=== PATIENT | male | born 1945 | race Caucasian/White ===

== ENCOUNTER 2016-07-17 13:24 | Emergency (ER) | payer MEDICARE ==
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
[2016-07-17] MEDS ORDERED: Norco 10/325 MG Tablet PO ONE (15:20)
[2016-07-17] MEDS ORDERED: Norco 10/325 MG Tablet ONE (15:44)
[2016-07-17] MEDS ORDERED: XYLOCAINE 2% HCL 20 ML MDV ONE (16:11)
[2016-07-17] MEDS ORDERED: Adacel Vial IM ONE ×2 (16:33→16:35)
[2016-07-17] MEDS ORDERED: Augmentin 875-125 Tablet PO ONE (16:35)
[2016-07-17] MEDS ORDERED: Augmentin 875-125 Tablet ONE (16:41)
[2016-07-17 17:51] VITALS: BP 160/68; PULSE 81; O2SAT 97
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
--- NOTE | 2016-07-17 20:08 | XRAY ---
Indication: Status post fall. Comparison: June 18, 2015. Portable chest unchanged again hyperinflated with a few calcified granulomas, left costophrenic angle blunting, and left-sided single lead pacemaker. Remaining lungs clear. Heart is not enlarged. Bony thorax intact again with osteopenia, degenerative changes, and previous C6-C7 fusion surgery. Impression: Stable nonacute chest with chronic features.
--- NOTE | 2016-07-17 20:10 | XRAY ---
Indication: Status post fall. Comparison: December 19, 2011. AP pelvis again demonstrates osteopenia, faint vascular calcifications, and mild/moderate degenerative changes of both hips and lower lumbar spine. No new/acute findings.
--- NOTE | 2016-07-17 20:12 | XRAY ---
Indication: Status post fall. Comparison: None 2 views of the right ribs demonstrates osteopenia, mild AC degenerative arthropathy, C6-C7 fusion surgery, partially visualized cardiac pacer lead, and deformed proximal upper arm stent graft. No other bone, articular, or soft tissue abnormalities.
--- NOTE | 2016-07-17 20:14 | XRAY ---
Indication: Status post fall. Comparison: None 2 views of the right femur demonstrates mild osteopenia, mild/moderate right hip degenerative changes, patellar spurring, and scattered vascular calcifications. No other bony, articular, or soft tissue abnormalities.
== END 2016-07-17 17:51 | disposition home or self-care (01) ==
LOC: ED 13:24
PROC: 0HQ2XZZ Repair Right Ear Skin, External Approach (ICD-10-PCS; principal; 2016-07-17)
DX: S01.311A Laceration without foreign body of right ear, initial encounter (principal); S16.1XXA Strain of muscle, fascia and tendon at neck level, initial encounter; S00.03XA Contusion of scalp, initial encounter; S70.01XA Contusion of right hip, initial encounter; J32.0 Chronic maxillary sinusitis; J32.2 Chronic ethmoidal sinusitis; W17.89XA Other fall from one level to another, initial encounter; R51 Headache; Z79.4 Long term (current) use of insulin; Z79.899 Other long term (current) drug therapy; Z86.73 Personal history of transient ischemic attack (TIA), and cerebral infarction without residual deficits; I50.9 Heart failure, unspecified; E78.00 Pure hypercholesterolemia, unspecified; I10 Essential (primary) hypertension; E11.9 Type 2 diabetes mellitus without complications
CPT/HCPCS: 12013; 99284; 71010; 73552; 72170; 71100; 70450; 72125; A9270 ×2; 90471; 90715; 99283

== ENCOUNTER 2017-01-13 21:20 | Emergency (ER) | payer MEDICARE ==
[2017-01-13] MEDS ORDERED: Sodium Chloride 0.9% 1000 ML 1,000 ML ONE (21:59)
--- NOTE | 2017-01-13 21:59 | ERPHSYRPT ---
- History of Present Illness Time Seen by Provider: 01/13/17 21:54 Source: patient Exam Limitations: clinical condition (Patient extremely somnolant) Physician History: 71-year-old white male with history of TIA, cataracts, congestive heart failure , hyperlipidemia, high blood pressure, [place], COPD, diabetes, chronic renal failure on dialysis, arthritis, depression Brought from a custodial patient apparently decreased level of consciousness since noon today patient apparently had a recent fistula placement at [facility] [place]. Apparently a had dialysis today Patient noted to be decreased level of consciousness she arrives. Patient currently moans when I talk to him. Will squeeze hands bilaterally weakly but really will not obey commands and actually resists opening of eyes. Past medical history includes TIA, cataracts, congestive heart failure, hyperlipidemia, high blood pressure, [place], COPD, diabetes, arthritis, GERD, renal failure on dialysis, depression, prostate problems and bladder problems Past surgical history includes angioplasty, cardiac catheter, cardiac stents, defibrillator, pacer, cholecystectomy, testicular surgery, cardiac stent 6, him suprapubic catheter waking him. Timing/Duration: today Severity: moderate Modifying Factors: Improves With: nothing Associated Symptoms: other (patient noted to be decreased loc at custodial since noon) Allergies/Adverse Reactions: pregabalin [From Lyrica] Allergy (Verified 07/20/16 08:10) diazepam [From Valium] Adverse Reaction (Verified 07/20/16 08:10) OVER SEDATION PAPER TAPE Allergy (Mild, Uncoded 07/17/16 13:54) Blisters Home Medications: Omeprazole 20 mg PO DAILY 08/04/12 [History] Alprazolam 1 mg [Xanax 1 mg] 1 mg PO QPM 12/16/13 [History] Clopidogrel Bisulfate 75 mg [PLAVIX 75 MG Tablet] 75 mg PO DAILY 12/16/13 [History] Etanercept [Enbrel] 50 mg SQ WEEKLY 12/16/13 [History] Insulin Glargine [Lantus Insulin] 30 units SQ QAM 12/16/13 [History] Ranolazine [Ranexa] 1,000 mg PO BID 12/16/13 [History] Bumetanide [Bumex] 2 mg PO BID 10/29/14 [History] Prednisolone Acetate OPHTH [Pred-Forte 1% Ophthalmic] 1 drop OP BID [History] Prednisone 2.5 mg PO DAILY 10/29/14 [History] Docusate Sodium 100 mg [Colace 100 MG] 100 mg PO BID 02/01/15 [History] Ipratropium/Albuterol Sulfate [Iprat-Albut 0.5-3(2.5) mg/3 ml] 3 ml IH TID 02/01 [History] Solifenacin Succinate [Vesicare] 10 mg PO DAILY 02/01/15 [History] Oxybutynin Chloride Xl 5 mg [Ditropan XL 5 MG] 10 mg PO BID 06/18/15 [ History] Alprazolam 0.5 mg PO QAM 07/17/16 [History] B Complex W-C No.20/Folic Acid [Nephrocaps Softgel] 1 mg PO QAM 07/17/16 [ History] Bisacodyl 5 mg [Dulcolax 5 mg] 10 mg PO QAM 07/17/16 [History] Cetirizine HCl [Zyrtec] 10 mg PO DAILY 07/17/16 [History] Diphenhydramine HCl 25 mg [Benadryl 25 mg Capsule] 25 mg PO HS 07/17/16 [ History] Fluoxetine HCl 10 mg [Prozac 10 mg] 10 mg PO DAILY 07/17/16 [History] Fluticasone Propionate [Flonase NASAL] 2 spray NS DAILY 07/17/16 [History] Guaifenesin [Mucus Relief] 400 mg PO BID 07/17/16 [History] Isosorbide Mononitrate 30 mg [Imdur 30 MG] 30 mg PO QAM 07/17/16 [History] Loratadine 10 mg [Claritin 10 mg] 10 mg PO DAILY 07/17/16 [History] Metoclopramide HCl 5 mg [Reglan 5 MG] 5 mg PO TID 07/17/16 [History] Simvastatin [Zocor] 20 mg PO HS 07/17/16 [History] Tramadol HCl 50 mg [Ultram 50 mg] 50 mg PO Q4H PRN 07/17/16 [History] Whey Protein Isolate [Beneprotein] 1 scoop PO TID 07/17/16 [History] Hx Tetanus, Diphtheria Vaccination/Date Given: Yes Hx Influenza Vaccination/Date Given: Yes Hx Pneumococcal Vaccination/Date Given: Yes - Review of Systems Constitutional: Other (decreased level of consciiousness) Eyes: No Symptoms Ears, Nose, & Throat: No Symptoms Respiratory: No Cough, No Dyspnea Cardiac: No Chest Pain, No Edema, No Syncope Abdominal/Gastrointestinal: No Abdominal Pain, No Nausea, No Vomiting, No Diarrhea Genitourinary Symptoms: No Dysuria Musculoskeletal: No Back Pain, No Neck Pain Skin: No Rash Neurological: No Dizziness, No Focal Weakness, No Sensory Changes Psychological: No Symptoms Endocrine: No Symptoms All Other Systems: Unable due to condition (review of systems as from custodial patient essentially obtunnded on arrival) - Past Medical History Pertinent Past Medical History: Yes Neurological History: TIA ENT History: Cataracts Cardiac History: Arrhythmia, Congestive Heart Failure, High Cholesterol, Hypertension, Myocardial Infarction ([place]) Respiratory History: CHF, COPD, Pneumonia, Sleep Apnea Endocrine Medical History: Diabetes Type II Musculoskeletal History: Arthritis GI Medical History: GERD History: Renal Disease Psycho-Social History: Depression Male Reproductive Disorders: Prostate Problems Other Medical History: BLADDER IS CRYSTALYZED. - Past Surgical History Past Surgical History: Yes Neuro Surgical History: No Pertinent History Cardiac: Angioplasty, Cardiac Catheterization, Cardiac Stent, Internal Defibrillator, Pacemaker Respiratory: No Pertinent History Gastrointestinal: Cholecystectomy Genitourinary: Other Musculoskeletal: Orthopedic Surgery Male Surgical History: Testicular Surgery Other Surgical History: 6 stents, SUPRAPUBIC CATHETER - Social History Smoking Status: Former smoker How long have you smoked: several Exposure to second hand smoke: No Drug Use: none Patient Lives Alone: No - Nursing Vital Signs Nursing Vital Signs: Initial Vital Signs Temperature 98.8 F 01/13/17 21:39 Pulse Rate 90 01/13/17 21:39 Respiratory Rate 14 01/13/17 21:39 Blood Pressure 170/100 01/13/17 21:39 O2 Sat by Pulse Oximetry 100 01/13/17 21:39 Pain Scale Pain Intensity 1 - Physical Exam General Appearance: other (Well-developed well-nourished white male, obtunded Will open eyes to command Will squeeze weakly bilaterally) Eye Exam: PERRL/EOMI, eyes nml inspection Ears, Nose, Throat Exam: normal ENT inspection, TMs normal, pharynx normal, moist mucous membranes Neck Exam: normal inspection, non-tender, supple, full range of motion Respiratory Exam: normal breath sounds, lungs clear, No respiratory distress Cardiovascular Exam: regular rate/rhythm, normal heart sounds, normal peripheral pulses Gastrointestinal/Abdomen Exam: soft, normal bowel sounds, No tenderness, No mass Back Exam: normal inspection, normal range of motion, No CVA tenderness, No vertebral tenderness Neurologic Exam: industrial sociologist II-XII nml as tested, other (patient obtunded. Will open eyes to command and squeeze weakly, moans) Skin Exam: normal color, warm, dry, No rash SpO2 Interpretation: normal (100 %4lnp) - Course Nursing assessment & vital signs reviewed: Yes EKG Interpreted by Me: RATE (91 bpm), Sinus Rhythm, NORMAL AXIS, 1st degree AV Block, Other (EKG: Sinus rhythm first degree AV block 91 beats for minute normal axis interventricular conducion delay with wide qrs complexes, no acute ST or T wave changes anterior myocardial infarction probably old) - Radiology Exams Chest X-ray Interpretation: Reviewed by me, Other (no acute disease process noted) - CT Exams Head CT Interpretation: Tele-radiologist Report (head CT: No acute findings) Ordered Tests: Active Orders 24 hr Category Date Time Status Accucheck STAT Care 01/13/17 21:51 Active EKG-ER Only STAT Care 01/13/17 21:53 Active IV Insertion STAT Care 01/13/17 21:50 Active CHEST 1 VIEW (PORTABLE) Stat Exams 01/13/17 21:50 Taken HEAD WITHOUT CONTRAST [CT] Stat Exams 01/13/17 21:52 Taken AMYLASE Stat Lab 01/13/17 22:06 Completed BLOOD CULTURE Stat Lab 01/13/17 22:32 Received CBC W DIFF Stat Lab 01/13/17 22:06 Completed CMP Stat Lab 01/13/17 22:06 Completed CULTURE,URINE Stat Lab 01/13/17 22:15 Received LIPASE Stat Lab 01/13/17 22:06 Completed UA W/ MICROSCOPIC Stat Lab 01/13/17 22:15 Completed VENOUS BLOOD GAS Urgent Lab 01/13/17 22:33 Completed Medication Summary Discontinued Medications Generic Name Dose Route Start Last Admin Trade Name Veronica PRN Reason Stop Dose Admin Sodium Chloride 1,000 mls @ 100 mls/hr 01/13/17 22:00 01/13/17 21:59 Sodium Chloride 0.9% 1000 Ml IV 02/12/17 21:59 100 mls/hr .Q10H ALBINA Administration Ceftriaxone Sodium/Dextrose 1 g in 50 mls @ 100 mls/hr 01/13/17 23:59 00:14 Rocephin 1 Gm-D5w 50 Ml Bag IV 01/14/17 00:28 100 mls/hr STAT STA Administration Ceftriaxone Sodium/Dextrose Confirm 01/14/17 00:02 Rocephin 1 Gm-D5w 50 Ml Bag Administered 01/14/17 00:03 Dose 1 g in 50 mls @ ud IV .STK-MED ONE Sodium Chloride Confirm 01/13/17 21:59 Sodium Chloride 0.9% 1000 Ml Administered 01/13/17 22:00 Dose 1,000 mls @ ud .ROUTE .STK-MED ONE Lab/Rad Data: Laboratory Result Diagrams 01/13/17 22:06 01/13/17 22:06 Laboratory Results 01/13/17 01/13/17 01/13/17 Range/Units 22:33 22:15 22:06 WBC (4.0-10.5) K/mm3 RBC (4.1-5.6) M/mm3 Hgb (12.5-18.0) gm/dl Hct (42-50) % MCV (78-100) fl MCH (26-32) pg MCHC (32-36) g/dl RDW (11.5-14.0) % Plt Count (150-450) K/mm3 MPV (6-9.5) fl Gran % (36.0-66.0) % Lymphocytes % (24.0-44.0) % Monocytes % (0.0-12.0) % Eosinophils % (0.00-5.0) % Basophils % (0.0-0.4) % Basophils # (0-0.4) VBG pH 7.42 (7.32-7.42) VBG pCO2 at Pat Temp 46 (42-55) mm/Hg VBG pO2 at Pat Temp 44 H (25-40) mm/Hg VBG HCO3 29.8 H* (22-28) meq/L VBG O2 Sat (Julisa) 83.7 L (95-100) VBG Base Excess 4.7 H (-2.0-2.0) VBG Hemoglobin 8.6 VBG Carboxyhemoglobin 2.9 (0.0-6.9) % T HGB POC Potassium 4.1 (3.5-5.1) Sodium 135 L (136-145) mEq/L Potassium 4.0 (3.5-5.1) mEq/L Chloride 98 (98-107) mEq/L Carbon Dioxide 26.9 (21-32) mEq/L Anion Gap 14.2 (5-15) MEQ/L BUN 34 H (9-20) mg/dL Creatinine 4.17 H (0.55-1.30) mg/dl Estimated GFR 15 ML/MIN Glucose 128 H (70-110) MG/DL Calcium 8.4 L (8.5-10.1) mg/dL Total Bilirubin 0.60 (0.2-1.0) mg/dL AST 36 (15-37) U/L ALT 18 (12-78) U/L Alkaline Phosphatase 91 (46-116) U/L Serum Total Protein 5.7 L (6.4-8.2) gm/dL Albumin 2.1 L (3.4-5.0) g/dL Amylase 15 L (25-115) U/L Lipase 157 (73-393) U/L Ur Collection Type CCMS Urine Color DARK YELLOW (YELLOW) Urine Appearance CLOUDY (CLEAR) Urine pH 5.0 (5-6) Ur Specific [place] 1.020 (1.005-1.025) Urine Protein TRACE (Negative) Urine Ketones NEGATIVE (NEGATIVE) Urine Blood 250 (0-5) Froy/ul Urine Nitrite NEGATIVE (NEGATIVE) Urine Bilirubin SMALL (NEGATIVE) Urine Urobilinogen NORMAL (0-1) mg/dL Ur Leukocyte Esterase 2+ (NEGATIVE) Urine Microscopic RBC >100 (0-2) /HPF Urine Microscopic WBC >100 (0-5) /HPF Urine Bacteria MANY (NEGATIVE) /HPF Urine Yeast FEW (NEGATIVE) /HPF Urine Glucose NEGATIVE (NEGATIVE) mg/dL Specimen Received 01-13-17222901/13/17 Range/Units 22:06 WBC 7.6 (4.0-10.5) K/mm3 RBC 2.28 L (4.1-5.6) M/mm3 Hgb 8.4 L (12.5-18.0) gm/dl Hct 25.3 L (42-50) % MCV 111.0 H (78-100) fl MCH 36.8 H (26-32) pg MCHC 33.2 (32-36) g/dl RDW 13.9 (11.5-14.0) % Plt Count 299 (150-450) K/mm3 MPV 9.4 (6-9.5) fl Gran % 67.7 H (36.0-66.0) % Lymphocytes % 15.9 L (24.0-44.0) % Monocytes % 13.5 H (0.0-12.0) % Eosinophils % 2.6 (0.00-5.0) % Basophils % 0.3 (0.0-0.4) % Basophils # 0.02 (0-0.4) VBG pH (7.32-7.42) VBG pCO2 at Pat Temp (42-55) mm/Hg VBG pO2 at Pat Temp (25-40) mm/Hg VBG HCO3 (22-28) meq/L VBG O2 Sat (Julisa) (95-100) VBG Base Excess (-2.0-2.0) VBG Hemoglobin VBG Carboxyhemoglobin (0.0-6.9) % T HGB POC Potassium (3.5-5.1) Sodium (136-145) mEq/L Potassium (3.5-5.1) mEq/L Chloride (98-107) mEq/L Carbon Dioxide (21-32) mEq/L Anion Gap (5-15) MEQ/L BUN (9-20) mg/dL Creatinine (0.55-1.30) mg/dl Estimated GFR ML/MIN Glucose (70-110) MG/DL Calcium (8.5-10.1) mg/dL Total Bilirubin (0.2-1.0) mg/dL AST (15-37) U/L ALT (12-78) U/L Alkaline Phosphatase (46-116) U/L Serum Total Protein (6.4-8.2) gm/dL Albumin (3.4-5.0) g/dL Amylase (25-115) U/L Lipase (73-393) U/L Ur Collection Type Urine Color (YELLOW) Urine Appearance (CLEAR) Urine pH (5-6) Ur Specific [place] (1.005-1.025) Urine Protein (Negative) Urine Ketones (NEGATIVE) Urine Blood (0-5) Froy/ul Urine Nitrite (NEGATIVE) Urine Bilirubin (NEGATIVE) Urine Urobilinogen (0-1) mg/dL Ur Leukocyte Esterase (NEGATIVE) Urine Microscopic RBC (0-2) /HPF Urine Microscopic WBC (0-5) /HPF Urine Bacteria (NEGATIVE) /HPF Urine Yeast (NEGATIVE) /HPF Urine Glucose (NEGATIVE) mg/dL Specimen Received - Progress Progress: improved Progress Note: 01/13/17 22:01 71-year-old white male with history of TIA, cataracts, congestive heart failure , hyperlipidemia, high blood pressure, [place], COPD, diabetes, GERD, renal failure on dialysis and depression. Patient brought by medics with complaint of the patient has been decreased level consciousness since noon today. Patient apparently had return to the custodial yesterday afternoon after having a fistula placed in his right upper arm. He apparently had dialysis today. He was noted to have decreased level of consciousness since around noon today. On arrival patient appears to be obtunded he will open his eyes to command and will weakly counselor camp bilaterally he moans when asked to respond. Will go ahead and obtain Accu-Chek, head CT, EKGs, CMP, CBC, blood cultures., Venous gases IV normal saline at 100 mils per hour has been started. 01/14/17 01:00 The patient's case is discussed with Dr. evans Rodgers felt that the patient should be taken care of at a facility that has a renal physician available, The patient's family and the patient states that he is taking care at [facility]. And the patient's renal physician is Dr. Florian. I contacted Dr. Douglas who is cottonseed meat presser for Dr. Florian , he states that he is well acquainted with the patient he actually took care of him at [facility] [place] approximately 2 days ago he states that the patient has a history of Klebsiella and is on Invanz. He states that the patient is chronically lethargic and he felt that if the patient was hemodynamically stable that he could return to the custodial. He did request that the patient received Invanz as ordered at the custodial. Patient is alert oriented 3 he had full range of motion to all extremities, Patient's labs have been reviewed with Dr. Douglas. Patient's head CT no acute intracranial changes chest x-ray stable EKG no changes. Will discharge patient back to the custodial. Patient to continue current medications and treatment At the custodial. - Departure Time of Disposition: 02:00 Departure Disposition: Extended Care Facility Clinical Impression: UTI (lower urinary tract infection), Mental status change resolved, history of renal failure Condition: Fair Critical Care Time: No Referrals: MARIA L OZUNA [LOCATION] - Additional Instructions: Return to custodial. Continue current orders and treatments continue Invanz as previously ordered Follow-up with your family doctor or renal physician. Return for acute distress or for severe symptoms.
[2017-01-13] MEDS ORDERED: Sodium Chloride 0.9% 1000 ML 1,000 ML IV SCH (22:00)
[2017-01-13 22:10] LABS: BASOPHIL % 0.3 % (0.0-0.4); Eosinophil % 2.6 % (0.00-5.0); Granulocytes % 67.7 % (36.0-66.0); Lymphocytes % 15.9 % (24.0-44.0); Mean Corpuscular Hemoglobin 36.8 pg (26-32); Mean Platelet Volume 9.4 fl (6-9.5); Monocytes % 13.5 % (0.0-12.0); Platelet Count 299 K/mm3 (150-450); Red Blood Count 2.28 M/mm3 (4.1-5.6); Red Cell Distribution Width 13.9 % (11.5-14.0); White Blood Count 7.6 K/mm3 (4.0-10.5)
[2017-01-13 22:32] LABS: ALBUMIN 2.1 g/dL (3.4-5.0); ANION GAP 14.2 MEQ/L (5-15); BILIRUBIN,TOTAL 0.6 mg/dL (0.2-1.0); Carbon Dioxide 26.9 mEq/L (21-32); Total Protein 5.7 gm/dL (6.4-8.2)
[2017-01-13 22:32] LABS: Bilirubin SMALL (NEGATIVE); Blood 250 Ery/ul (0-5); COMPLETE URINE MICROSCOPIC? YES; Collection Type CCMS; Glucose NEGATIVE (NEGATIVE); Leukocyte Esterase 2+ (NEGATIVE)
[2017-01-13 22:33] LABS: ADD URINE CULTURE? YES (NO); Bacteria MANY /HPF (NEGATIVE); WBC >100 /HPF (0-5); Yeast FEW /HPF (NEGATIVE)
[2017-01-13 22:40] LABS: VBG BASE EXCESS 4.7 (-2.0-2.0); VBG CARBOXYHEMOGLOBIN 2.9 % T HGB (0.0-6.9); VBG HCO3- 29.8 meq/L (22-28); VBG HEMOGLOBIN 8.6; VBG O2 SATURATION 83.7 (95-100); VBG POTASSIUM 4.1 (3.5-5.1); VBG pH 7.42 (7.32-7.42)
[2017-01-13] MEDS ORDERED: ROCEPHIN 1 Gm-D5w 50 ml Bag** 1 G/50 ML IVPB IV STA (23:59)
[2017-01-14] MEDS ORDERED: ROCEPHIN 1 Gm-D5w 50 ml Bag** 1 G/50 ML IVPB IV ONE (00:02)
[2017-01-14 00:56] VITALS: PULSE 82
[2017-01-14 01:58] VITALS: BP 115/57; O2SAT 100
--- NOTE | 2017-01-14 07:01 | XRAY ---
Indication: Altered mental status. Multiple contiguous axial images obtained through the head without contrast. Comparison: July 20, 2016. Again age-appropriate global atrophy and mild periventricular degenerative micro-ischemia. There is now a small focus of chronic appearing right subdural hematoma near the right vertex at least 9 mm in thickness and 9 cm in AP dimension. No acute intracranial hemorrhage, hydrocephalus, or mass effect. Bony calvarium intact. Visualized paranasal sinuses and mastoid air cells essentially clear. Impression: 1. New finding for chronic appearing right subdural hematoma. MRI may yield further information if clinically warranted. 2. No acute intracranial abnormalities. Again normal aging brain. Comment: Preliminary interpretation was made by [facility]. Chronic subdural hematoma not reported. CTDI 67.80
--- NOTE | 2017-01-14 07:07 | XRAY ---
Indication: Decreased level of consciousness. Comparison: July 20, 2016. Portable chest unchanged again hyperinflated with a few calcified granulomas, left costophrenic angle blunting, and left-sided single lead pacemaker. Heart is not enlarged for AP portable projection. No new/acute findings.
== END 2017-01-14 02:09 | disposition home or self-care (01) ==
LOC: SUPCPDRO 21:20 → ED 21:20
DX: N39.0 Urinary tract infection, site not specified (principal); R41.82 Altered mental status, unspecified; N19 Unspecified kidney failure; Z86.73 Personal history of transient ischemic attack (TIA), and cerebral infarction without residual deficits; I50.9 Heart failure, unspecified; E78.00 Pure hypercholesterolemia, unspecified; I10 Essential (primary) hypertension; E11.9 Type 2 diabetes mellitus without complications; I25.2 Old myocardial infarction; J44.9 Chronic obstructive pulmonary disease, unspecified; Z79.899 Other long term (current) drug therapy
CPT/HCPCS: 36415; 70450; 71010; 80053; 81000; 82150; 82805; 82962; 83690; 85025; 87040; 87077; 87086; 93005; 96360; 96361; 96365; 99284; 99285; J0696

== ENCOUNTER 2017-01-26 20:27 | Emergency (ER) | payer MEDICARE ==
[2017-01-26 20:55] VITALS: PULSE 80; O2SAT 100
--- NOTE | 2017-01-26 21:02 | ERPHSYRPT ---
- History of Present Illness Time Seen by Provider: 01/26/17 20:27 Source: patient, EMS Exam Limitations: no limitations Physician History: ABOUT 20 MINUTES AGO AT [facility] PT WAS IN A WHEELCHAIR REACHING FOR THE TV CONTROLLER HE HAD JUST DROPPED AND FELL FORWARD HITTING HIS HEAD AND LEFT FOREARM ON A CARPETED FLOOR. PT C/O PAIN IN HIS HEAD, LEFT ELBOW AND LEFT KNEE. PT ALSO C/O NUMBNESS IN HIS FEET FOR YEARS. PT IS ON DIALYSIS . PT DENIES CHEST PAIN, ABDOMINAL PAIN, BACK PAIN. Allergies/Adverse Reactions: pregabalin [From Lyrica] Allergy (Verified 01/26/17 21:02) diazepam [From Valium] Adverse Reaction (Verified 01/26/17 21:02) OVER SEDATION PAPER TAPE Allergy (Mild, Uncoded 01/26/17 21:02) Blisters Home Medications: Omeprazole 40 mg PO DAILY 08/04/12 [History] Clopidogrel Bisulfate 75 mg [PLAVIX 75 MG Tablet] 75 mg PO DAILY 12/16/13 [History] Etanercept [Enbrel] 50 mg SQ WEEKLY 12/16/13 [History] Insulin Glargine [Lantus Insulin] 4 units SQ QAM 12/16/13 [History] Ranolazine [Ranexa] 1,000 mg PO BID 12/16/13 [History] Bumetanide [Bumex] 2 mg PO BID 10/29/14 [History] Prednisone 2.5 mg PO DAILY 10/29/14 [History] Docusate Sodium 100 mg [Colace 100 MG] 100 mg PO BID 02/01/15 [History] Ipratropium/Albuterol Sulfate [Iprat-Albut 0.5-3(2.5) mg/3 ml] 3 ml IH TID PRN 02/01/15 [History] Oxybutynin Chloride Xl 5 mg [Ditropan XL 5 MG] 10 mg PO BID 06/18/15 [ History] Alprazolam 0.5 mg PO BID 07/17/16 [History] Bisacodyl 5 mg [Dulcolax 5 mg] 10 mg PO DAILY PRN PRN 07/17/16 [History] Diphenhydramine HCl 25 mg [Benadryl 25 mg Capsule] 25 mg PO HS 07/17/16 [ History] Fluoxetine HCl 10 mg [Prozac 10 mg] 10 mg PO DAILY 07/17/16 [History] Fluticasone Propionate [Flonase NASAL] 2 spray NS DAILY 07/17/16 [History] Guaifenesin [Mucus Relief] 400 mg PO BID 07/17/16 [History] Isosorbide Mononitrate 30 mg [Imdur 30 MG] 30 mg PO QAM 07/17/16 [History] Loratadine 10 mg [Claritin 10 mg] 10 mg PO DAILY 07/17/16 [History] Metoclopramide HCl 5 mg [Reglan 5 MG] 5 mg PO TID 07/17/16 [History] Simvastatin [Zocor] 20 mg PO HS 07/17/16 [History] Tramadol HCl 50 mg [Ultram 50 mg] 50 mg PO Q4H PRN 07/17/16 [History] Bacitracin 1 each TP TID 01/26/17 [History] Lanolin Alcohol/Mo/W.pet/Lancing [Eucerin Creme] 1 gm TP DAILY 01/26/17 [History] Meropenem 500 mg IV DAILY 01/26/17 [History] Mupirocin [Bactroban OINTMENT] 0 gm TOP DAILY 01/26/17 [History] Solifenacin Succinate [Vesicare] 10 mg PO DAILY 01/26/17 [History] Hx Tetanus, Diphtheria Vaccination/Date Given: Yes Hx Influenza Vaccination/Date Given: Yes Hx Pneumococcal Vaccination/Date Given: Yes - Review of Systems Cardiac: No Chest Pain Abdominal/Gastrointestinal: No Abdominal Pain Musculoskeletal: Joint Pain (LEFT ELBOW AND KNEE PAIN), No Back Pain Neurological: Headache All Other Systems: Reviewed and Negative - Past Medical History Pertinent Past Medical History: Yes Neurological History: TIA ENT History: Cataracts Cardiac History: Arrhythmia, Congestive Heart Failure, High Cholesterol, Hypertension, Myocardial Infarction ([place]) Respiratory History: CHF, COPD, Pneumonia, Sleep Apnea Endocrine Medical History: Diabetes Type II Musculoskeletal History: Arthritis GI Medical History: GERD History: Renal Disease Psycho-Social History: Depression Male Reproductive Disorders: Prostate Problems Other Medical History: BLADDER IS CRYSTALYZED. - Past Surgical History Past Surgical History: Yes Neuro Surgical History: No Pertinent History Cardiac: Angioplasty, Cardiac Catheterization, Cardiac Stent, Internal Defibrillator, Pacemaker Respiratory: No Pertinent History Gastrointestinal: Cholecystectomy Genitourinary: Other Musculoskeletal: Orthopedic Surgery Male Surgical History: Testicular Surgery Other Surgical History: 6 stents, SUPRAPUBIC CATHETER - Social History Smoking Status: Former smoker How long have you smoked: several Exposure to second hand smoke: No Drug Use: none Patient Lives Alone: No - Nursing Vital Signs Nursing Vital Signs: Initial Vital Signs Temperature 97.3 F 01/26/17 20:32 Pulse Rate 80 01/26/17 20:32 Respiratory Rate 18 01/26/17 20:32 Blood Pressure 124/55 01/26/17 20:32 O2 Sat by Pulse Oximetry 100 01/26/17 20:32 Pain Scale Pain Intensity 5 - Felt Coma Score Best Eye Response (Jaziel): (4) open spontaneously Best Verbal Response (Jaziel): (5) oriented Best Motor Response (Jaziel): (6) obeys commands Felt Total: 15 - Physical Exam General Appearance: alert Head Injury: contusions (ABRASION OVER RIGHT SIDE OF FOREHEAD) Eye Exam: PERRL/EOMI ENT Exam: airway nml, other (SUPERFICIAL ABRASION TO SUPERIOR ASPECT OF RIGHT AURICLE) Neck Exam: trachea midline, normal inspection Respiratory/Chest Exam: normal breath sounds Cardiovascular Exam: normal heart sounds Gastrointestinal Exam: soft, normal bowel sounds Back Exam: other (STAGE 1 DECUBITUS ULCER OVER SACRUM ) Extremity Exam: tenderness (MILD LEFT KNEE TENDERNESS), other (4 CM SKIN TEARS(2 ) OVER THE PROXIMAL LEFT FOREARM) Neurologic Exam: alert, cooperative Skin Exam: decubitus (3 CM DECUBITUS ULCER TO RIGHT FOOT; 1 CM DECUBITUS ULCER TO LEFT FOOT.) - Course Nursing assessment & vital signs reviewed: Yes - Radiology Exams Left Elbow X-ray Interpretation: Interpreted by me, No Fracture Left Knee X-ray Interpretation: Interpreted by me, No Fracture - CT Exams Head CT Interpretation: Tele-radiologist Report (AN ACUTE INTRACRANIAL ABNORMALITY IS NOT VISUALIZED. SEE REST OF REPORT.) Cervical Spine CT Interpretation: Tele-radiologist Report (AN ACUTE FRACTURE OR SUBLUXATION ARE NOT VISUALIZED.) Ordered Tests: Active Orders 24 hr Category Date Time Status Wound Care STAT Care 01/26/17 21:47 Active CERVICAL SPINE WO CONTRAST [CT] Stat Exams 01/26/17 21:15 Taken ELBOW (MINIMUM 3 VIEWS) Stat Exams 01/26/17 21:16 Taken HEAD WITHOUT CONTRAST [CT] Stat Exams 01/26/17 21:15 Taken KNEE (3 VIEWS) Stat Exams 01/26/17 21:16 Taken AMYLASE Stat Lab 01/26/17 21:16 Stop Req CBC W DIFF Stat Lab 01/26/17 21:16 Stop Req CMP Stat Lab 01/26/17 21:16 Stop Req LIPASE Stat Lab 01/26/17 21:16 Stop Req MAGNESIUM Stat Lab 01/26/17 21:16 Stop Req - Departure Time of Disposition: 22:56 Departure Disposition: Home Clinical Impression: FALL, HEAD CONTUSION/ABRASION, SKIN TEARS TO LEFT FOREARM, LEFT KNEE PAIN, ESRD Condition: Stable Critical Care Time: No Referrals: FERNANDEZ MARIE MD [Primary Care Provider] - Instructions: Contusion, Prevent Falls Additional Instructions: FOLLOW UP WITH PRIVATE DOCTOR TOMORROW.
[2017-01-26 23:56] VITALS: BP 128/69
--- NOTE | 2017-01-27 21:42 | XRAY ---
Exam: 3 views of the left elbow from 01/26/2017. Comparison: None. Indication: Complains of left elbow pain following a fall, limited movement. Findings: AP, oblique, and attempted lateral images of the left elbow were obtained. The lateral film is suboptimal. No gross joint effusion is seen. I see no definite fracture or dislocation. The left elbow joint space is preserved. Minimal hypertrophic change is seen at the margin of the lateral epicondyle. No suspicious periarticular soft tissue calcifications are seen. Impression: 1. The exam is mildly limited due to suboptimal positioning on the lateral image. 2. However, no definite left elbow fracture, dislocation, or joint effusion is seen.
--- NOTE | 2017-01-27 21:47 | XRAY ---
Exam: 3 views of the left knee from 01/26/2017. Comparison: None. Indication: Fall, left knee pain, limited movement. Findings: AP, oblique, and a cross table lateral view of the left knee were obtained. I see no acute fracture or dislocation. I cannot exclude a minimal suprapatellar effusion. Moderate osteophyte formation is seen at the anterior superior margin of the left patella. The patellofemoral joint appears unremarkable. Some atherosclerotic vascular calcification is seen within the distal superficial femoral artery and popliteal artery. There is mild narrowing of the medial compartment of left knee joint suggesting some osteoarthritis. The lateral compartment of the left knee joint appears unremarkable. No other focal bone lesion is seen. Impression:. 1. No acute fracture or dislocation of the left knee is seen. 2. Small suprapatellar left knee joint effusion. 3. Mild medial compartment osteoarthritis of the left knee. I also note a moderate sized spur at the anterior superior margin of the left patella.
--- NOTE | 2017-01-28 05:06 | XRAY ---
Exam: CT of the head without IV contrast from 01/26/2017 CTDI: 51.17 Comparison: CT of the head without IV contrast from 01/13/2017. Indication: Patient fell down on carpeted floor, has "scrape" on right frontal region, prior stroke. Technique: Non-IV contrast axial images were obtained through the brain. Reconstructed coronal and sagittal images were created and reviewed. Findings: The patient's head is again mildly tilted in the CT gantry. There is mild prominence of the lateral and third ventricles representing no change. There is moderate prominence of the cortical sulci and basilar cisterns consistent with generalized atrophy. I see no evidence of acute intracranial bleed. There is a small extracerebral low attenuation fluid collection overlying the upper right cerebral convexity. Careful comparison suggests that this is slightly smaller. This finding was believed to represent a chronic subdural hematoma on the prior exam. There has been no adverse change. Mild chronic microvascular disease is seen. Some calcification is seen within both carotid siphons. Minimal mucosal thickening is seen within the inferior aspect of the maxillary sinuses. The remainder of the paranasal sinuses appears clear. The calvarium of the skull appears intact. There is equivocal evidence of minimal mucosal thickening within the inferior mastoid air cells of the right. This is unchanged. No new mastoid sinus disease is seen. Impression: 1. I again see a small extracerebral low-attenuation fluid collection overlying the upper right parietal convexity. This was believed to represent a chronic subdural hematoma on the previous exam of 01/13/2017. I believe this is slightly decreased in size representing some improvement. There is certainly no adverse change. 2. No acute intracranial bleed is seen. 3. Generalized atrophy with mild chronic microvascular disease. An acute territorial infarct is not seen. 4. No acute fracture of the calvarium of the skull is seen. 5. Minimal mucosal thickening is seen at the inferior margin of the visualized maxillary sinuses. This appears chronic.
--- NOTE | 2017-01-28 05:24 | XRAY ---
Exam: CT of the cervical spine without IV contrast from 01/26/2017. CTDI: 114.46. Comparison: CT of the cervical spine without IV contrast from 07/17/2016. Indication: Patient fell down on carpet floor, patient denies neck pain, history of prior cervical spine surgery. Technique: Non-IV contrast axial images were obtained through the cervical spine. Reconstructed coronal and sagittal images were created and reviewed. Findings: I see no evidence of acute cervical spine fracture or AP subluxation. No prevertebral soft tissue swelling is seen. The preodontoid space reveals degenerative change. No jumped facets are seen on the sagittal images. There is evidence of anterior surgical fusion at C6-C7 with an anterior metallic plate and 4 adjoining screws. The C6-C7 interspace appears fused. The other cervical interspaces are fairly well-maintained. Small anterior vertebral endplate spurs are seen from C3-C4 through C5-C6. There is also minimal posterior vertebral endplate spurring at C4-C5. I see no significant central canal stenosis. The C1-C2 relationship appears unremarkable. No cervical ribs are seen. The visualized lung apices appear unremarkable. Some degenerative changes of the apophyseal joints are seen. I believe there is moderate to marked narrowing of the right C4-C5 neural foramen and mild narrowing of the left C4-C5 neural foramen. There is also moderate to marked narrowing of the right C5-C6 neural foramen. I believe there is mild narrowing of the left C6-C7 neural foramen. Impression: 1. The patient's cervical spine is angled in the CT gantry. However, I see no evidence of acute cervical spine fracture or AP subluxation. 2. Status post anterior cervical fusion at C6-C7 with a small anterior metallic plate and 4 adjoining screws. There is fusion at the C6-C7 interspace. 3. Other mild degenerative changes are seen within the cervical spine. Some neural foraminal narrowing is seen, as discussed above. I don't believe this is significantly changed.
== END 2017-01-26 23:50 ==
LOC: ED 20:27
DX: S00.93XA Contusion of unspecified part of head, initial encounter (principal); S00.91XA Abrasion of unspecified part of head, initial encounter; S51.812A Laceration without foreign body of left forearm, initial encounter; M25.562 Pain in left knee; N18.6 End stage renal disease; W05.0XXA Fall from non-moving wheelchair, initial encounter; R51 Headache; M25.522 Pain in left elbow; Z79.899 Other long term (current) drug therapy; Z79.4 Long term (current) use of insulin
CPT/HCPCS: 70450; 72125; 73080; 73562; 99283